=== PATIENT | male | born 1995 | race Caucasian/White ===

== ENCOUNTER 2021-07-29 06:28 | Day surgery (SDC) | payer OTHER ==
[2021-07-29 06:36] VITALS: BMI 28.0
[2021-07-29] MEDS ORDERED: MIDAZOLAM HCL 2 MG/2 ML SINGLE DOSE VIAL ONE ×4 (09:21→09:35)
[2021-07-29] MEDS ORDERED: PROPOFOL 20 ML ONE (09:21)
[2021-07-29] MEDS ORDERED: ROPIVACAINE HCL 0.5% 30ML VIAL ONE (09:36)
[2021-07-29] MEDS ORDERED: ceFAZolin SODIUM 1 GM VIAL IVPB ONE (10:10)
[2021-07-29] MEDS ORDERED: oxyCODONE HCL 5 MG TABLET PO PRN ×2 (12:02)
[2021-07-29] MEDS ORDERED: ONDANSETRON 4 MG/2 ML VIAL IVPUSH PRN (12:02)
[2021-07-29] MEDS ORDERED: LACTATED RINGERS SOLUTION 1,000 ML IV SCH (12:15)
[2021-07-29 15:02] VITALS: PULSE 64
[2021-07-29 15:17] VITALS: BP 120/70; TEMP 98
== END 2021-07-29 15:15 | disposition home or self-care (01) ==
LOC: JER 06:28 → JASUSAT 07:37
PROVIDERS: ATTEND Orthopaedic Surgery
PROC: 0PSH04Z Reposition Right Radius with Internal Fixation Device, Open Approach (ICD-10-PCS; principal; 2021-07-29 09:00)
DX: S52.391A Other fracture of shaft of radius, right arm, initial encounter for closed fracture (principal); X58.XXXA Exposure to other specified factors, initial encounter; Y93.9 Activity, unspecified; Y92.9 Unspecified place or not applicable; Y99.9 Unspecified external cause status
CPT/HCPCS: 25515; C1713; 73110-TC-RT-FY; 94760; 99285-25; C9803; U0003; U0005